=== PATIENT | male | born 1980 | race Caucasian/White ===

== ENCOUNTER 2017-10-11 12:09 | Emergency (ER) | payer SELFPAY ==
[~2017-10-11] VITALS: Ht 185.4 cm; Wt 98.5 kg
[2017-10-11 12:25] VITALS: BP 163/86; PULSE 120; RESP 15; TEMP 98.7; O2SAT 98
[2017-10-11] MEDS ORDERED: METH10TA PO (13:10)
--- NOTE | 2017-10-11 13:13 | PD ---
HPI Chief Complaint: ENT Complaint Time Seen by Provider: 13:06 Travel History International Travel<30 days: No Contact w/Intl Traveler<30days: No Traveled to known affect area: No History of Present Illness HPI Patient comes in complaining of the sharp dry pain in the back of his throat has been ongoing for approximately a month. Patient denies anything making it better or worse. Patient reports that he has been having this intermittently over the past several months he was put on antibiotics before it seems make his symptoms worse. Patient reports he quit smoking that help somewhat with the pain however continues to have it. Denies any difficulty swallowing or pain with swallowing. Denies any radiation of pain. Denies any fevers. PFSH Past Medical History Medical History: Denies Significant Hx Diminished Hearing: No Tetanus Vaccination: Unknown Influenza Vaccination: No ?: Not Social History Alcohol Use: No Tobacco Use: No (quit aug 2017) Substance Use: No Allergies-Medications (Allergen,Severity, Reaction): Coded Allergies: No Known Allergies (Verified Allergy, Unknown, 10/11/17) Reported Meds & Prescriptions Reported Meds & Active Scripts Active Reported Methadone (Methadone HCl) 10 Mg Tab 10 Mg PO DAILY Review of Systems Except as stated in HPI: all other systems reviewed are Neg Physical Exam Narrative GENERAL: Well-developed, overly nourished, in no acute distress, and non-ill appearing. SKIN: Focused skin assessment warm and dry. HEAD: Atraumatic. Normocephalic. EYES: Pupils equal and round. EOMI. No scleral icterus. No injection or drainage. ENT: No nasal bleeding or discharge. Mucous membranes pink and moist. Tympanic membranes pearly patricia bilaterally. Posterior pharynx no erythema/ exudate. Uvula is midline. NECK: Trachea midline. No cervical lymphadenopathy. Supple. No nuclear rigidity. CARDIOVASCULAR: Regular rate and rhythm. No murmur appreciated. RESPIRATORY: No accessory muscle use. No respiratory distress. Clear to auscultation. Breath sounds equal bilaterally. MUSCULOSKELETAL: No obvious deformities. No clubbing. No cyanosis. No edema. Full range of motion. NEUROLOGICAL: Awake and alert. No obvious cranial nerve deficits. Motor grossly within normal limits. Normal speech. PSYCHIATRIC: Appropriate mood and affect; insight and judgment normal. Data Data Last Documented VS Vital Signs Date Time Temp Pulse Resp B/P (MAP) Pulse Ox O2 Delivery O2 Flow Rate FiO2 10/11/17 12:25 98.7 120 15 163/86 (111) 98 Orders Orders Group A Rapid Strep Screen (10/11/17 13:10) Strep Culture (Group A) (10/11/17 13:18) Ed Discharge Order (10/11/17 14:33) MDM Medical Decision Making Medical Screen Exam Complete: Yes Emergency Medical Condition: Yes Differential Diagnosis Strep pharyngitis, viral pharyngitis, postnasal drip, GERD, mild Narrative Course RN was unable to obtain blood after multiple attempts and patient refusing additional attempts for Monospot test. Patient looks great, non-ill appearing. The patient is tolerating fluids and is well hydrated. Appears viral pharyngitis with viral symptom complex. No clinical evidence by history or evaluation to suspect meningitis and/or sepsis. There was no evidence to suggest peritonsillar abscess or retropharyngeal abscess. I discussed with the patient, diagnosis, plan of care and to follow up with the patients primary physician and/or ENT. The patient was instructed to return if the worsens in anyway, especially if not tolerating fluids, increased pain or swelling, difficulty swallowing or breathing, or as needed. Patient also given warning signs to avoid contact sports injuries to the left upper quadrant abdomen left flank until mono can be ruled out by his primary care doctor. The patient agreed with plan. Patient in no obvious distress upon re-evaluation. All pertinent laboratory result(s) discussed with patient. Any questions/concerns in reference to patient diagnosis/condition discussed and clarified prior to patient's discharge. Reinforced sheer importance of close follow up with patient's primary physician or primary care clinic and/or ENT. Instructed patient to return to ED immediately, if symptoms return/worsen. Patient showed understanding of above instructions. Further instructions and recommendations were detailed in discharge paperwork. Patient ambulated without difficulty out of ED at discharge. Diagnosis Primary Impression: Pharyngitis Qualified Codes: J02.9 - Acute pharyngitis, unspecified Referrals: [place] MD [facility] Patient Instructions: General Instructions, Pharyngitis (ED) Additional Instructions: Follow-up with your primary care physician and/or ENT this week for reevaluation. Use [id number] Tylenol or ibuprofen as needed for pain. Follow instructions on the packaging. Drink plenty of non-caffeinated and nonalcoholic fluids. Return to the emergency department if symptoms get worse. Disposition: 01 DISCHARGE HOME Condition: Stable Cali Jefferson Oct 11, 2017 13:13
== END 2017-10-11 14:46 | disposition home or self-care (01) ==
LOC: PHED 12:09 → PHEFT 14:46
DX: J02.9 Acute pharyngitis, unspecified (principal); Z87.891 Personal history of nicotine dependence
CPT/HCPCS: 87081; 87880; 99283